=== PATIENT | female | born 1990 | race Two or more races ===

== ENCOUNTER → 2019-01-18 | Outpatient (CLI) | payer OTHER | END | disposition home or self-care (01) | LOC: PRENATAL 08:27 | DX: O35.3XX0 Maternal care for (suspected) damage to fetus from viral disease in mother, not applicable or unspecified (principal) ==

== ENCOUNTER 2019-03-12 05:06 | Inpatient (IN) | payer OTHER ==
[~2019-03-12] VITALS: Ht 170.2 cm; Wt 0.9 kg
[2019-03-12] MEDS ORDERED: PRENATAL TABLE1 EAC1 PO (09:26)
== END 2019-03-18 13:24 | disposition home or self-care (01) | DRG 788 ==
LOC: OBS/DEL 05:06 → LDR 09:08 → O/R 03-15 02:42 → OB/GYN 03-15 03:22
PROVIDERS: ADMIT Obstetrics & Gynecology
PROC: 4A1HXCZ Monitoring of Products of Conception, Cardiac Rate, External Approach (ICD-10-PCS; 2019-03-12)
PROC: BY4FZZZ Ultrasonography of Third Trimester, Single Fetus (ICD-10-PCS; 2019-03-12)
PROC: 10D00Z1 Extraction of Products of Conception, Low, Open Approach (ICD-10-PCS; principal; 2019-03-15 07:00)
DX: O82 Encounter for cesarean delivery without indication (principal); O64.1XX0 Obstructed labor due to breech presentation, not applicable or unspecified; Z3A.28 28 weeks gestation of pregnancy; Z37.0 Single live birth

== ENCOUNTER 2019-04-21 13:00 | Emergency (ER) | payer OTHER ==
[~2019-04-21] VITALS: Ht 167.6 cm; Wt 60.8 kg
[~2019-04-21 13:00] MED LIST: PRENATAL TABLE1 EAC1 PO
== END 2019-04-21 17:28 | disposition home or self-care (01) ==
LOC: ER 13:00
DX: K52.89 Other specified noninfective gastroenteritis and colitis (principal); E86.0 Dehydration